=== PATIENT | female | born 1985 | race Caucasian/White ===

== ENCOUNTER 2020-09-21 13:03 | Emergency (ER) | payer OTHER ==
[~2020-09-21] VITALS: Ht 177.8 cm; Wt 85.2 kg
--- OUTSIDE RECORDS SUMMARY | 2020-09-21 13:10 | CCD ---
Author Author [facility] Address Unknown Phone Unavailable Support Name Relationship Address Phone [facility] Next Of Kin [address] [place] [address] Unavailable [place] [address] Re-disclosure Warning The records that you are about to access may contain information from federally-assisted alcohol or drug abuse programs. If such information is present, then the following federally mandated warning applies: This information has been disclosed to you from records protected by federal confidentiality rules (42 CFR part 2). The federal rules prohibit you from making any further disclosure of this information unless further disclosure is expressly permitted by the written consent of the person to whom it pertains or as otherwise permitted by 42 CFR part 2. A general authorization for the release of medical or other information is NOT sufficient for this purpose. The Federal rules restrict any use of the information to criminally investigate or prosecute any alcohol or drug abuse patient.The records that you are about to access may contain highly sensitive health information, the redisclosure of which is protected by Article 27-F of the [facility] Public Health law. If you continue you may have access to information: Regarding HIV / AIDS; Provided by facilities licensed or operated by the [facility] Office of Mental Health; or Provided by the [facility] Office for People With Developmental Disabilities. If such information is present, then the following [facility] mandated warning applies: This information has been disclosed to you from confidential records which are protected by state law. State law prohibits you from making any further disclosure of this information without the specific written consent of the person to whom it pertains, or as otherwise permitted by law. Any unauthorized further disclosure in violation of state law may result in a fine or correction sentence or both. A general authorization for the release of medical or other information is NOT sufficient authorization for further disc losure. Insurance Providers Payer name Policy type / Coverage type Policy ID Covered republican ID Covered republican's relationship to molina Policy Molina Plan Information HUMANA EAST REG O [id number] S [id number] EAST ACTIVE DUTY [id number] SP [id number] EAST HUMANA - O/P [id number] 18 [id number] ACTIVE DUTY [id number] SP [id number] N REGIONAL CLAIMS WALLY -O/P [id number] 18 [id number]
[2020-09-21] MEDS ORDERED: PROV108A INH (13:19)
--- NOTE | 2020-09-21 14:39 | REP ---
INDICATION: swallowed partial. COMPARISON: None. TECHNIQUE: Three AP and lateral views soft tissues neck performed. FINDINGS: There is no radiopaque foreign body in the region of the cervical soft tissues. The epiglottis is normal in size. The palatine tonsils do not appear enlarged. The adenoids do not appear enlarged. There is no prevertebral soft tissue swelling. The airway is widely patent. IMPRESSION: No radiopaque foreign body visualized. <Electronically signed by Brennen Douglas > 09/21/20 [id number]
[2020-09-21 15:57] VITALS: BP 118/69
--- NOTE | 2020-09-21 16:06 | REP ---
INDICATION: swallowed bridge. COMPARISON: None. TECHNIQUE: AP views of chest and abdomen are performed. FINDINGS: In the right upper quadrant there is a tri lobed density likely representing the ingested foreign body. This probably lies within the duodenum. There is no bowel obstruction. The lungs are clear and the heart and mediastinum are unremarkable. IMPRESSION: The ingested foreign body appears to be in the right upper quadrant of the abdomen, likely in the duodenum. <Electronically signed by Brennen Douglas > 09/21/20 [id number]
--- OUTSIDE RECORDS SUMMARY | 2020-09-21 16:22 | CCD ---
Author Author [facility] Address Unknown Phone Unavailable Support Name Relationship Address Phone [facility] Next Of Kin [address] [place] [address] [place] [address] Unavailable [place] [address] Re-disclosure Warning The records that you are [...] is protected by Article 27-F of the [facility] Public Health law. If you continue you may have access to information: Regarding HIV / AIDS; Provided by facilities licensed or operated by the [facility] Office of Mental Health; or Provided by the [facility] Office for People With Developmental Disabilities. If such information is present, then the following [facility] mandated warning applies: This information has been [...] type / Coverage type Policy ID Covered green party ID Covered green party's relationship to molina Policy Molina Plan Information EAST ACTIVE DUTY [id number] SP [id number] HUMANA EAST REG O [id number] S [id number] EAST ACTIVE DUTY [id number] SP [id number] EAST HUMANA - O/P [id number] 18 [id number] ACTIVE DUTY [id number] SP [id number] N REGIONAL CLAIMS WALLY -O/P [id number] 18 [id number]
--- NOTE | 2020-09-24 06:09 | ED PDOC ---
Post-Departure Follow-Up ft ginger lockwood and dr rocha faxed formal report of nose to rectum for fu mg Adina Valero MD Sep 24, 2020 06:09
== END 2020-09-21 16:21 | disposition home or self-care (01) ==
LOC: M ED 13:03
DX: T18.2XXA Foreign body in stomach, initial encounter (principal)

== ENCOUNTER 2021-07-19 11:12 | Emergency (ER) | payer OTHER ==
[~2021-07-19] VITALS: Ht 177.8 cm; Wt 77.3 kg
[~2021-07-19 11:12] MED LIST: PROV108A INH
[2021-07-19] MEDS ORDERED: MULTTAB20 PO (11:44)
[2021-07-19 13:14] LABS: HEMATOCRIT 38.9 % (36.0-47.0); HEMOGLOBIN 13.2 g/dl (12.0-15.5); MEAN CORPUSCULAR HEMOGLOBIN 29.9 pg (27.0-33.0); MEAN CORPUSCULAR HGB CONC 33.9 g/dl (32.0-36.5); PLATELET COUNT, AUTOMATED 207 10^3/uL (150-450); RED BLOOD COUNT 4.42 10^6/uL (4.00-5.40); WHITE BLOOD COUNT 5.8 10^3/uL (4.0-10.0)
--- OUTSIDE RECORDS SUMMARY | 2021-07-19 13:43 | CCD ---
Author Author [facility] Address Unknown Phone Unavailable Support Name Relationship Address Phone [facility] Next Of Kin [address] [place] [address] Unavailable KANDACE ENGLISH Next Of Kin [place], [place] [address] Re-disclosure Warning The records that you are [...] is protected by Article 27-F of the [facility] Public Health law. If you continue you may have access to information: Regarding HIV / AIDS; Provided by facilities licensed or operated by the [facility] Office of Mental Health; or Provided by the [facility] Office for People With Developmental Disabilities. If such information is present, then the following [facility] mandated warning applies: This information has been [...] law may result in a fine or long-term sentence or both. A general authorization for the release of medical or other information is NOT sufficient authorization for further disc losure. Immunizations Vaccine Date Status Description Data Source(s) COVID-19 VACCINE Pfizer 10/17/2020 12:00:00 AM EST completed [facility] Vaccine Series Complete: NOThis Data was Submitted to [facility] Via [employer]. Medications No Information Insurance Providers Payer name Policy type / Coverage type Policy ID Covered constitution party ID Covered constitution party's relationship to molina Policy Molina Plan Information EAST ACTIVE DUTY [id number] SP [id number] EAST ACTIVE DUTY [id number] SP [id number] HUMANA EAST REG O [id number] S [id number] [facility] HUMANA - O/P [id number] 18 [id number] ACTIVE DUTY [id number] SP [id number] N REGIONAL CLAIMS WALLY -O/P [id number] 18 [id number] Problems, Conditions, and Diagnoses No Information Surgeries/Procedures No Information Results No Information Social History No Information
--- NOTE | 2021-07-19 15:51 | REP ---
INDICATION: left pelvic pain, h/o extopica, . COMPARISON: None. TECHNIQUE: Transvesical and transvaginal imaging FINDINGS: The uterus measures 9.4 x 5.3 x 6.2 cm. There is a hypoechoic nodule in the anterior uterine body which measures 2 cm. This is consistent with myomatous change. The endometrial echo complex is homogeneous measuring 2.3 cm. There is no evidence of an intrauterine . The right ovary measures 2.2 x 1.7 x 1.9 cm and is within normal limits with an RI 0.71 Left ovary measures 3 x 2.4 x 2.9 cm with an RI 0.51. Within the left ovary there is a 2 cm sized slightly mixed echo structure consistent with a resolving or slightly hemorrhagic cyst. IMPRESSION: There is no evidence of an intrauterine or extra uterine at this time. There is what is most likely a resolving left ovarian hemorrhagic or non hemorrhagic cyst. Small uterine myoma as described above. Follow-up is suggested. <Electronically signed by Vinh Berumen > 07/19/21 [id number]
[2021-07-19 17:31] VITALS: BP 117/60
--- NOTE | 2021-07-20 09:10 | ED PDOC ---
Post-Departure Follow-Up radiology rpeo tfaxed to [facility] Tanika Carey MD Jul 20, 2021 09:10
== END 2021-07-19 17:32 | disposition home or self-care (01) ==
LOC: M ED 11:12
DX: O20.0 Threatened abortion (principal); O34.81 Maternal care for other abnormalities of pelvic organs, first trimester; Z87.59 Personal history of other complications of pregnancy, childbirth and the puerperium; Z79.899 Other long term (current) drug therapy; Z3A.00 Weeks of gestation of pregnancy not specified

== ENCOUNTER 2021-07-21 12:01 | Emergency (ER) | payer OTHER ==
[~2021-07-21] VITALS: Ht 177.8 cm; Wt 79.8 kg
[~2021-07-21 12:01] MED LIST changes: +MULTTAB20 PO
--- OUTSIDE RECORDS SUMMARY | 2021-07-21 12:07 | CCD ---
Author Author [facility] Address Unknown Phone Unavailable Support Name Relationship Address Phone [facility] Next Of Kin [address] [place] [address] Unavailable [place] [address] KALLIE ARELLANO [facility] [id number] [place] [address] [phone] Re-disclosure Warning The records that you are [...] is protected by Article 27-F of the [facility] Public Health law. If you continue you may have access to information: Regarding HIV / AIDS; Provided by facilities licensed or operated by the [facility] Office of Mental Health; or Provided by the [facility] Office for People With Developmental Disabilities. If such information is present, then the following [facility] mandated warning applies: This information has [...] law may result in a fine or chcf sentence or both. A general authorization for the release of medical or other information is NOT sufficient authorization for further disc losure. Immunizations Vaccine Date Status Description Data Source(s) COVID-19 VACCINE Pfizer 10/17/2020 12:00:00 AM EST completed [facility] Vaccine Series Complete: NOThis Data was Submitted to [facility] Via [employer]. Medications No Information Insurance Providers Payer name Policy type / Coverage type Policy ID Covered constitution party ID Covered constitution party's relationship to molina Policy Molina Plan Information EAST ACTIVE DUTY [id number] SP [id number] [facility] ACTIVE DUTY [id number] SP [id number] HUMANA EAST REG O [id number] S [id number] [facility] HUMANA - O/P [id number] 18 [id number] ACTIVE DUTY [id number] SP [id number] N REGIONAL CLAIMS WALLY -O/P [id number] 18 [id number] Problems, Conditions, and Diagnoses No Information Surgeries/Procedures No Information Results No Information Social History No Information
--- OUTSIDE RECORDS SUMMARY | 2021-07-21 17:05 | CCD ---
Author Author [facility] Address Unknown Phone Unavailable Support Name Relationship Address Phone [facility] Next Of Kin [address] [place] [address] Unavailable KANDACE [place] [address] KALLIE ARELLANO [facility] [id number] [place] [address] [phone] Re-disclosure Warning The records that you are [...] is protected by Article 27-F of the [facility] Public Health law. If you continue you may have access to information: Regarding HIV / AIDS; Provided by facilities licensed or operated by the [facility] Office of Mental Health; or Provided by the [facility] Office for People With Developmental Disabilities. If such information is present, then the following [facility] mandated warning applies: This information has been [...] law may result in a fine or senior care sentence or both. A general authorization for the release of medical or other information is NOT sufficient authorization for further disc losure. Immunizations Vaccine Date Status Description Data Source(s) COVID-19 VACCINE Pfizer 10/17/2020 12:00:00 AM EST completed [facility] Vaccine Series Complete: NOThis Data was Submitted to [facility] Via [employer] [address] [employer]. Medications No Information Insurance Providers Payer name Policy type / Coverage type Policy ID Covered green party ID Covered green party's relationship to molina Policy Molina Plan Information EAST ACTIVE DUTY [id number] SP [id number] [facility] ACTIVE DUTY [id number] SP [id number] HUMANA EAST REG O [id number] S [id number] [facility] HUMANA - O/P [id number] 18 [id number] ACTIVE DUTY [id number] SP [id number] N REGIONAL CLAIMS WALLY -O/P [id number] 18 [id number] Problems, Conditions, and Diagnoses No Information Surgeries/Procedures No Information Results No Information Social History No Information
--- NOTE | 2021-07-21 17:38 | REP ---
INDICATION: repeat per ob, resolved pelvic pain.. COMPARISON: Comparison study 19 July 2021. TECHNIQUE: Transabdominal and transvaginal scanning or performed. FINDINGS: Uterine dimensions are 8.4 x 5.9 x 6.9 cm. There is a 0.7 cm cystic area in the endometrium visible today. This is compatible with a gestational sac. No yolk sac or embryonic pole is observed. There is a 2.3 x 2.0 x 1.7 cm anterior myometrial nodule consistent with a fibroid in the uterus again seen. No free fluid is seen in the cul-de-sac. A normal right ovary is seen measuring 2.4 x 1.5 x 1.6 cm. The left ovary measures 4.5 x 2.9 x 3.1 cm and contains a cystic area 2.4 x 1.9 x 1.8 cm in diameter. IMPRESSION: Findings consistent with a early intrauterine gestational sac, 6.6 mm in mean sac size diameter correlating with a 5 week 2 day gestation. No embryonic pole or yolk sac is visible. There is a small cystic area in the maternal left ovary. viability cannot be confirmed. Consider clinical and possibly sonographic follow-up. <Electronically signed by Rafael Hale > 07/21/21 1842
[2021-07-21 18:18] VITALS: BP 118/67
== END 2021-07-21 18:20 | disposition home or self-care (01) ==
LOC: M ED 12:01
DX: Z32.01 Encounter for pregnancy test, result positive (principal); Z87.59 Personal history of other complications of pregnancy, childbirth and the puerperium; Z3A.01 Less than 8 weeks gestation of pregnancy; O34.81 Maternal care for other abnormalities of pelvic organs, first trimester; Z79.899 Other long term (current) drug therapy